=== PATIENT | female | born 1935 | race African-American/Black ===

== ENCOUNTER 2021-04-15 14:50 | Inpatient (IN) | payer BC, OTHER ==
[2021-04-15 16:40] LABS: BASO % 0.5 % (0-2.0); EOS % 0.1 % (0-4.5); HEMATOCRIT 38.8 % (32.4-45.2); HEMOGLOBIN 13.3 GM/dL (10.7-15.3); LYMPH % 18.8 % (8-40); MCH 37.1 pg (25.7-33.7); MCHC 34.2 g/dl (32.0-36.0); MEAN CELL VOLUME 108.5 fl (80-96); MEAN PLT VOLUME 7.5 fl (7.5-11.1); NEUT % 69.6 % (42.8-82.8); PLATELET COUNT 241 10^3/uL (134-434); RBC 3.58 M/mm3 (3.60-5.2); RDW 13.5 % (11.6-15.6); WHITE BLOOD COUNT 5.5 K/mm3 (4.0-10.0)
[2021-04-15 16:48] LABS: INR 1.22 (0.83-1.09); PROTHROMBIN TIME (PATIENT) 13.7 SEC (9.7-13.0)
[2021-04-15 16:51] LABS: ACTIVATED PTT 24.2 SECONDS (25.2-36.5)
[2021-04-15 16:51] LABS: VENOUS BASE EXCESS -2.2 mmol/L (-2-2); VENOUS O2 SATURATION 92.3 % (70-80); VENOUS PCO2 35.6 mmHg (38-52); VENOUS PH 7.405 (7.310-7.410)
[2021-04-15 17:10] LABS: CHLORIDE 107 mmol/L (98-107); SODIUM 138 mmol/L (136-145)
[2021-04-15 17:15] LABS: ALBUMIN 3.8 g/dl (3.4-5.0); ANION GAP 8 MMOL/L (8-16); BLOOD UREA NITROGEN 28.9 mg/dL (7-18); CALCIUM 9.7 mg/dL (8.5-10.1); CO2 23 mmol/L (21-32); GLUCOSE,RANDOM 148 mg/dL (74-106); MAGNESIUM 1.9 mg/dL (1.8-2.4)
[2021-04-15 17:18] LABS: SGOT/AST 14 U/L (15-37); SGPT/ALT 25 U/L (13-61)
[2021-04-15 17:19] LABS: OVALOCYTE 1+; PLATELET ESTIMATE NORMAL
[2021-04-15 17:20] LABS: ANISOCYTOSIS 1+; BILIRUBIN,TOTAL 1.2 mg/dL (0.2-1); MACROCYTOSIS 1+; TOT PROT 8.6 g/dl (6.4-8.2)
[2021-04-15 17:21] LABS: ALK PHOS 92 U/L (45-117)
[2021-04-15] MEDS ORDERED: LACTATED RINGERS SOLUTION 1000 ML INFUS.BAG IV ONE ×2 (17:29→19:41)
[2021-04-16 08:18] LABS: BASO % 0.4 % (0-2.0); EOS % 0.4 % (0-4.5); HEMATOCRIT 35.3 % (32.4-45.2); HEMOGLOBIN 12.2 GM/dL (10.7-15.3); LYMPH % 24.5 % (8-40); MCH 37.5 pg (25.7-33.7); MCHC 34.5 g/dl (32.0-36.0); MEAN CELL VOLUME 108.6 fl (80-96); MEAN PLT VOLUME 7.6 fl (7.5-11.1); MONO % 12.4 % (3.8-10.2); NEUT % 62.3 % (42.8-82.8); PLATELET COUNT 234 10^3/uL (134-434); RBC 3.25 M/mm3 (3.60-5.2); RDW 13.1 % (11.6-15.6)
[2021-04-16 08:46] LABS: ALBUMIN 3.3 g/dl (3.4-5.0); BLOOD UREA NITROGEN 20.6 mg/dL (7-18); CALCIUM 9.3 mg/dL (8.5-10.1); MAGNESIUM 1.9 mg/dL (1.8-2.4)
[2021-04-16 08:49] LABS: CREATININE 0.9 mg/dL (0.55-1.3); PHOSPHOROUS 2.3 mg/dL (2.5-4.9)
[2021-04-16 08:50] LABS: BILIRUBIN,TOTAL 1.4 mg/dL (0.2-1); TOT PROT 7.4 g/dl (6.4-8.2)
[2021-04-16] MEDS ORDERED: ESCITALOPRAM OXALATE 10 MG TABLET PO SCH (10:00)
[2021-04-16] MEDS ORDERED: LISINOPRIL 20 MG TABLET PO SCH (10:00)
[2021-04-16] MEDS ORDERED: PNEUMOC 13-VAL CONJ-DIP CRM/PF 0.5 ML DISP.SYRIN IM ONE (11:00)
[2021-04-16] MEDS ORDERED: FLU VACC QS2021-22(6MOS UP)/PF 60 MCG/0.5 ML SYRINGE IM ONE (11:00)
[2021-04-16] MEDS: LISINOPRIL 20 MG TABLET PO SCH (13:43)
[2021-04-16] MEDS: ASPIRIN 81 MG CHEWABLE TABLETS PO SCH (13:43)
[2021-04-16] MEDS: ENOXAPARIN NA (PORCINE) 40 MG/0.4 ML DISP.SYRIN SQ SCH (13:43)
[2021-04-16] MEDS: INSULIN SLIDING SCALE (NOVOLOG) 1 VIAL SQ SCH ×3 (13:46→21:10)
[2021-04-16 14:36] LABS: URINE APPEARANCE CLEAR; URINE BILIRUBIN NEGATIVE (NEGATIVE); URINE COLOR YELLOW; URINE GLUCOSE (UA) NEGATIVE (NEGATIVE); URINE KETONE TRACE (NEGATIVE); URINE LEUK ESTERASE NEGATIVE (NEGATIVE); URINE NITRITE NEGATIVE (NEGATIVE); URINE PROTEIN TRACE (NEGATIVE)
[2021-04-17] MEDS: INSULIN SLIDING SCALE (NOVOLOG) 1 VIAL SQ SCH ×4 (06:12→21:05)
[2021-04-17 08:24] LABS: HEMATOCRIT 31.9 % (32.4-45.2); HEMOGLOBIN 11.2 GM/dL (10.7-15.3); MCH 38.1 pg (25.7-33.7); MCHC 34.9 g/dl (32.0-36.0); MEAN CELL VOLUME 109.1 fl (80-96); MEAN PLT VOLUME 7.6 fl (7.5-11.1); PLATELET COUNT 212 10^3/uL (134-434); RBC 2.93 M/mm3 (3.60-5.2); RDW 13.3 % (11.6-15.6); WHITE BLOOD COUNT 5.3 K/mm3 (4.0-10.0)
[2021-04-17 08:42] LABS: ALBUMIN 2.9 g/dl (3.4-5.0); BLOOD UREA NITROGEN 20.3 mg/dL (7-18); CALCIUM 9.1 mg/dL (8.5-10.1); MAGNESIUM 1.8 mg/dL (1.8-2.4)
[2021-04-17 08:46] LABS: CREATININE 0.9 mg/dL (0.55-1.3); PHOSPHOROUS 2.9 mg/dL (2.5-4.9)
[2021-04-17 08:47] LABS: BILIRUBIN,TOTAL 0.9 mg/dL (0.2-1); TOT PROT 6.7 g/dl (6.4-8.2)
[2021-04-17 10:07] LABS: ANISOCYTOSIS 1+; MACROCYTOSIS 1+; OVALOCYTE 1+; PLATELET ESTIMATE NORMAL
[2021-04-17] MEDS: ESCITALOPRAM OXALATE 10 MG TABLET PO SCH (10:09)
[2021-04-17] MEDS: LISINOPRIL 20 MG TABLET PO SCH (10:09)
[2021-04-17] MEDS: ASPIRIN 81 MG CHEWABLE TABLETS PO SCH (10:09)
[2021-04-17] MEDS: ENOXAPARIN NA (PORCINE) 40 MG/0.4 ML DISP.SYRIN SQ SCH (10:10)
[2021-04-17] MEDS: QUEtiapine FUMARATE 25 MG TABLET PO SCH (21:00)
[2021-04-18] MEDS: INSULIN SLIDING SCALE (NOVOLOG) 1 VIAL SQ SCH ×4 (06:02→21:22)
[2021-04-18 09:37] LABS: BASO % 0.7 % (0-2.0); EOS % 1.1 % (0-4.5); HEMATOCRIT 33.7 % (32.4-45.2); HEMOGLOBIN 11.7 GM/dL (10.7-15.3); LYMPH % 39.6 % (8-40); MCH 37.9 pg (25.7-33.7); MCHC 34.8 g/dl (32.0-36.0); MEAN PLT VOLUME 7.6 fl (7.5-11.1); MONO % 11.4 % (3.8-10.2); NEUT % 47.2 % (42.8-82.8); PLATELET COUNT 203 10^3/uL (134-434); RBC 3.09 M/mm3 (3.60-5.2); RDW 13.3 % (11.6-15.6); WHITE BLOOD COUNT 4.5 K/mm3 (4.0-10.0)
[2021-04-18 09:44] LABS: CALCIUM 8.9 mg/dL (8.5-10.1)
[2021-04-18 09:45] LABS: BLOOD UREA NITROGEN 17.1 mg/dL (7-18)
[2021-04-18 09:47] LABS: MAGNESIUM 1.7 mg/dL (1.8-2.4)
[2021-04-18 09:49] LABS: CREATININE 0.8 mg/dL (0.55-1.3); PHOSPHOROUS 2.9 mg/dL (2.5-4.9)
[2021-04-18 09:50] LABS: BILIRUBIN,TOTAL 0.8 mg/dL (0.2-1); TOT PROT 6.8 g/dl (6.4-8.2)
[2021-04-18] MEDS: ASPIRIN 81 MG CHEWABLE TABLETS PO SCH (10:48)
[2021-04-18] MEDS: ESCITALOPRAM OXALATE 10 MG TABLET PO SCH (10:48)
[2021-04-18] MEDS: LISINOPRIL 20 MG TABLET PO SCH (10:48)
[2021-04-18] MEDS: ENOXAPARIN NA (PORCINE) 40 MG/0.4 ML DISP.SYRIN SQ SCH (10:49)
[2021-04-18 10:52] LABS: ANISOCYTOSIS 1+; MACROCYTOSIS 1+; PLATELET ESTIMATE NORMAL
[2021-04-18] MEDS ORDERED: LISINOPRIL 20 MG TABLET PO ONE ×2 (11:50→20:58)
[2021-04-18] MEDS: QUEtiapine FUMARATE 25 MG TABLET PO SCH (21:22)
[2021-04-18] MEDS ORDERED: MAGNESIUM OXIDE 400 MG TABLET (FP) PO SCH (22:00)
[2021-04-19] MEDS: INSULIN SLIDING SCALE (NOVOLOG) 1 VIAL SQ SCH ×4 (06:01→21:04)
[2021-04-19 09:30] LABS: METHADONE, UR NEGATIVE (NEGATIVE)
[2021-04-19 09:32] LABS: COCAINE, UR NEGATIVE (NEGATIVE); OPIATES, URI NEGATIVE (NEGATIVE); PHENCYCLIDINE,URINE NEGATIVE (NEGATIVE); URINE AMPHETAMINES NEGATIVE (NEGATIVE); URINE BARBITURATES NEGATIVE (NEGATIVE); URINE BENZODIAZEPINES NEGATIVE (NEGATIVE)
[2021-04-19] MEDS: ASPIRIN 81 MG CHEWABLE TABLETS PO SCH (12:00)
[2021-04-19] MEDS: LISINOPRIL 20 MG TABLET PO SCH ×2 (12:01→20:07)
[2021-04-19] MEDS: ESCITALOPRAM OXALATE 10 MG TABLET PO SCH (12:01)
[2021-04-19] MEDS: ENOXAPARIN NA (PORCINE) 40 MG/0.4 ML DISP.SYRIN SQ SCH (12:01)
[2021-04-19 12:15] LABS: RETICULOCYTES 1.18 % (0.5-1.5)
[2021-04-19 12:36] LABS: LDH 179 U/L (84-246)
[2021-04-19] MEDS ORDERED: hydrALAZINE HCL 20 MG/ML VIAL IVPUSH ONE (19:30)
[2021-04-19] MEDS: DEXTROSE 5%-0.45% SALINE 1,000 ML IV SCH (20:27)
[2021-04-19] MEDS: QUEtiapine FUMARATE 25 MG TABLET PO SCH (21:39)
[2021-04-20 00:06] LABS: IGM QN SERUM 5 mg/dL (26-217)
[2021-04-20] MEDS: INSULIN SLIDING SCALE (NOVOLOG) 1 VIAL SQ SCH ×4 (06:23→21:11)
[2021-04-20] MEDS: ASPIRIN 81 MG CHEWABLE TABLETS PO SCH (10:04)
[2021-04-20] MEDS: ENOXAPARIN NA (PORCINE) 40 MG/0.4 ML DISP.SYRIN SQ SCH (10:04)
[2021-04-20] MEDS: LISINOPRIL 20 MG TABLET PO SCH (10:04)
[2021-04-20] MEDS: ESCITALOPRAM OXALATE 10 MG TABLET PO SCH (10:05)
[2021-04-20] MEDS: DEXTROSE 5%-0.45% SALINE 1,000 ML IV SCH ×2 (11:30→20:06)
[2021-04-20 16:07] LABS: IGG QN IMMUNOGLOBULIN 1821 mg/dL (586-1602); IGG SUBCLASS 1 1637 mg/dL (248-810); IGG SUBCLASS 2 47 mg/dL (130-555); IGG SUBCLASS 3 15 mg/dL (15-102)
[2021-04-20] MEDS ORDERED: LORazepam 2 MG/ML SDV VIAL IM ONE (17:30)
[2021-04-20] MEDS ORDERED: LORazepam 2 MG/ML SDV VIAL IVPUSH ONE (17:40)
[2021-04-20] MEDS ORDERED: LORazepam 2 MG/ML SDV VIAL IVPUSH PRN (17:40)
[2021-04-20] MEDS: QUEtiapine FUMARATE 25 MG TABLET PO SCH (21:02)
[2021-04-21] MEDS: INSULIN SLIDING SCALE (NOVOLOG) 1 VIAL SQ SCH ×4 (06:03→22:09)
[2021-04-21] MEDS: DEXTROSE 5%-0.45% SALINE 1,000 ML IV SCH (06:28)
[2021-04-21 09:22] LABS: BASO % 0.3 % (0-2.0); EOS % 0.3 % (0-4.5); HEMATOCRIT 32.7 % (32.4-45.2); HEMOGLOBIN 11.5 GM/dL (10.7-15.3); LYMPH % 18.7 % (8-40); MCH 38.4 pg (25.7-33.7); MEAN CELL VOLUME 109.7 fl (80-96); MEAN PLT VOLUME 7.7 fl (7.5-11.1); MONO % 11.8 % (3.8-10.2); NEUT % 68.9 % (42.8-82.8); PLATELET COUNT 197 10^3/uL (134-434); RBC 2.98 M/mm3 (3.60-5.2); RDW 13.6 % (11.6-15.6); WHITE BLOOD COUNT 7.9 K/mm3 (4.0-10.0)
[2021-04-21 10:05] LABS: ALBUMIN 2.9 g/dl (3.4-5.0); BLOOD UREA NITROGEN 17.8 mg/dL (7-18); CALCIUM 9.3 mg/dL (8.5-10.1)
[2021-04-21 10:06] LABS: MAGNESIUM 1.7 mg/dL (1.8-2.4)
[2021-04-21 10:09] LABS: PHOSPHOROUS 3.1 mg/dL (2.5-4.9)
[2021-04-21 10:10] LABS: TOT PROT 6.3 g/dl (6.4-8.2)
[2021-04-21] MEDS: LISINOPRIL 20 MG TABLET PO SCH (10:23)
[2021-04-21] MEDS: ENOXAPARIN NA (PORCINE) 40 MG/0.4 ML DISP.SYRIN SQ SCH (10:23)
[2021-04-21] MEDS: ASPIRIN 81 MG CHEWABLE TABLETS PO SCH (10:23)
[2021-04-21] MEDS: ESCITALOPRAM OXALATE 10 MG TABLET PO SCH (10:23)
[2021-04-21 12:00] LABS: ANISOCYTOSIS 1+; MACROCYTOSIS 1+; PLATELET ESTIMATE NORMAL
[2021-04-21] MEDS ORDERED: MAGNESIUM SULF 50% (8.12 MEQ/2 ML-1 GM VIAL) IVPB ONE (16:07)
[2021-04-21 17:07] LABS: FREE KAPPA,SERUM 1225.6 mg/L (3.3-19.4)
[2021-04-21] MEDS ORDERED: FAMOTIDINE 20 MG TABLET PO ONE (18:11)
[2021-04-21] MEDS: QUEtiapine FUMARATE 25 MG TABLET PO SCH (20:59)
[2021-04-22] MEDS: INSULIN SLIDING SCALE (NOVOLOG) 1 VIAL SQ SCH ×4 (06:21→21:52)
[2021-04-22] MEDS: DEXTROSE 5%-0.45% SALINE 1,000 ML IV SCH ×2 (06:23→20:38)
[2021-04-22 09:38] LABS: BASO % 0.3 % (0-2.0); HEMATOCRIT 30.7 % (32.4-45.2); HEMOGLOBIN 10.6 GM/dL (10.7-15.3); LYMPH % 20.3 % (8-40); MCH 37.7 pg (25.7-33.7); MCHC 34.4 g/dl (32.0-36.0); MEAN CELL VOLUME 109.6 fl (80-96); MEAN PLT VOLUME 8.1 fl (7.5-11.1); MONO % 10.2 % (3.8-10.2); NEUT % 69.2 % (42.8-82.8); PLATELET COUNT 224 10^3/uL (134-434); RDW 13.4 % (11.6-15.6)
[2021-04-22 09:52] LABS: ALBUMIN 2.8 g/dl (3.4-5.0); BLOOD UREA NITROGEN 39.8 mg/dL (7-18); MAGNESIUM 2.2 mg/dL (1.8-2.4)
[2021-04-22 09:55] LABS: PHOSPHOROUS 2.4 mg/dL (2.5-4.9)
[2021-04-22 09:56] LABS: TOT PROT 6.4 g/dl (6.4-8.2)
[2021-04-22] MEDS: ENOXAPARIN NA (PORCINE) 40 MG/0.4 ML DISP.SYRIN SQ SCH (10:36)
[2021-04-22] MEDS: ASPIRIN 81 MG CHEWABLE TABLETS PO SCH (10:36)
[2021-04-22] MEDS: ESCITALOPRAM OXALATE 10 MG TABLET PO SCH (10:36)
[2021-04-22] MEDS: LISINOPRIL 20 MG TABLET PO SCH (10:36)
[2021-04-22] MEDS: QUEtiapine FUMARATE 25 MG TABLET PO SCH (21:43)
[2021-04-23] MEDS: INSULIN SLIDING SCALE (NOVOLOG) 1 VIAL SQ SCH ×4 (06:18→21:28)
[2021-04-23] MEDS ORDERED: LORazepam 2 MG/ML SDV VIAL IVPUSH ONE (10:12)
[2021-04-23] MEDS: ASPIRIN 81 MG CHEWABLE TABLETS PO SCH (10:21)
[2021-04-23] MEDS: ESCITALOPRAM OXALATE 10 MG TABLET PO SCH (10:21)
[2021-04-23] MEDS: LISINOPRIL 20 MG TABLET PO SCH (10:21)
[2021-04-23 12:00] LABS: BASO % 0.4 % (0-2.0); EOS % 0.4 % (0-4.5); HEMATOCRIT 27.6 % (32.4-45.2); HEMOGLOBIN 9.4 GM/dL (10.7-15.3); LYMPH % 21.4 % (8-40); MCH 37.9 pg (25.7-33.7); MCHC 34.3 g/dl (32.0-36.0); MEAN CELL VOLUME 110.7 fl (80-96); MEAN PLT VOLUME 8.1 fl (7.5-11.1); MONO % 9.7 % (3.8-10.2); NEUT % 68.1 % (42.8-82.8); PLATELET COUNT 203 10^3/uL (134-434); RBC 2.49 M/mm3 (3.60-5.2); WHITE BLOOD COUNT 8.3 K/mm3 (4.0-10.0)
[2021-04-23 12:34] LABS: ALBUMIN 2.5 g/dl (3.4-5.0); BLOOD UREA NITROGEN 31.4 mg/dL (7-18)
[2021-04-23 12:35] LABS: MAGNESIUM 2.2 mg/dL (1.8-2.4)
[2021-04-23 12:38] LABS: CREATININE 0.9 mg/dL (0.55-1.3); PHOSPHOROUS 2.4 mg/dL (2.5-4.9)
[2021-04-23 12:39] LABS: BILIRUBIN,TOTAL 0.8 mg/dL (0.2-1); TOT PROT 6.1 g/dl (6.4-8.2)
[2021-04-23] MEDS: QUEtiapine FUMARATE 25 MG TABLET PO SCH (21:28)
[2021-04-23] MEDS: DEXTROSE 5%-0.45% SALINE 1,000 ML IV SCH (22:04)
[2021-04-24] MEDS: INSULIN SLIDING SCALE (NOVOLOG) 1 VIAL SQ SCH ×4 (06:33→21:26)
[2021-04-24 08:32] LABS: HEMATOCRIT 26.1 % (32.4-45.2); MCH 37.7 pg (25.7-33.7); MCHC 34.3 g/dl (32.0-36.0); MEAN CELL VOLUME 110.1 fl (80-96); MEAN PLT VOLUME 7.7 fl (7.5-11.1); PLATELET COUNT 191 10^3/uL (134-434); RBC 2.37 M/mm3 (3.60-5.2); RDW 13.9 % (11.6-15.6)
[2021-04-24 08:49] LABS: CALCIUM 8.8 mg/dL (8.5-10.1)
[2021-04-24 08:50] LABS: ALBUMIN 2.5 g/dl (3.4-5.0); BLOOD UREA NITROGEN 21.4 mg/dL (7-18); MAGNESIUM 2.2 mg/dL (1.8-2.4)
[2021-04-24 08:53] LABS: CREATININE 0.9 mg/dL (0.55-1.3); PHOSPHOROUS 2.4 mg/dL (2.5-4.9)
[2021-04-24 08:54] LABS: BILIRUBIN,TOTAL 0.7 mg/dL (0.2-1); TOT PROT 5.8 g/dl (6.4-8.2)
[2021-04-24] MEDS: LISINOPRIL 20 MG TABLET PO SCH (09:53)
[2021-04-24] MEDS: ESCITALOPRAM OXALATE 10 MG TABLET PO SCH (09:53)
[2021-04-24] MEDS: ASPIRIN 81 MG CHEWABLE TABLETS PO SCH (09:53)
[2021-04-24 11:08] LABS: ANISOCYTOSIS 1+; MACROCYTOSIS 1+; OVALOCYTE 2+; PLATELET ESTIMATE NORMAL; TEAR DROP CELLS 1+
[2021-04-24] MEDS ORDERED: QUEtiapine FUMARATE 25 MG TABLET ONE (20:49)
[2021-04-24] MEDS: QUEtiapine FUMARATE 25 MG TABLET PO SCH (21:26)
[2021-04-25] MEDS: DEXTROSE 5%-0.45% SALINE 1,000 ML IV SCH ×2 (01:25→23:26)
[2021-04-25] MEDS: INSULIN SLIDING SCALE (NOVOLOG) 1 VIAL SQ SCH ×4 (06:24→23:24)
[2021-04-25 09:41] LABS: BASO % 0.4 % (0-2.0); EOS % 0.8 % (0-4.5); HEMATOCRIT 28.9 % (32.4-45.2); HEMOGLOBIN 10.2 GM/dL (10.7-15.3); LYMPH % 21.6 % (8-40); MCH 38.8 pg (25.7-33.7); MCHC 35.3 g/dl (32.0-36.0); MEAN PLT VOLUME 8.1 fl (7.5-11.1); MONO % 11.3 % (3.8-10.2); NEUT % 65.9 % (42.8-82.8); PLATELET COUNT 239 10^3/uL (134-434); RBC 2.63 M/mm3 (3.60-5.2); RDW 13.6 % (11.6-15.6); WHITE BLOOD COUNT 7.2 K/mm3 (4.0-10.0)
[2021-04-25 11:25] LABS: BLOOD UREA NITROGEN 11.5 mg/dL (7-18)
[2021-04-25] MEDS: ESCITALOPRAM OXALATE 10 MG TABLET PO SCH (11:26)
[2021-04-25] MEDS: LISINOPRIL 20 MG TABLET PO SCH (11:26)
[2021-04-25 11:30] LABS: CALCIUM 8.8 mg/dL (8.5-10.1)
[2021-04-25 11:32] LABS: BILIRUBIN,TOTAL 1.1 mg/dL (0.2-1); TOT PROT 6.9 g/dl (6.4-8.2)
[2021-04-25 11:33] LABS: CREATININE 0.9 mg/dL (0.55-1.3); PHOSPHOROUS 2.2 mg/dL (2.5-4.9)
[2021-04-25 11:44] LABS: ALBUMIN 3.1 g/dl (3.4-5.0)
[2021-04-25 14:51] LABS: ANISOCYTOSIS 1+; MACROCYTOSIS 0; PLATELET ESTIMATE NORMAL
[2021-04-25] MEDS: QUEtiapine FUMARATE 25 MG TABLET PO SCH (22:56)
[2021-04-26] MEDS: INSULIN SLIDING SCALE (NOVOLOG) 1 VIAL SQ SCH ×4 (06:21→21:58)
[2021-04-26 09:36] LABS: BASO % 0.4 % (0-2.0); EOS % 0.9 % (0-4.5); HEMATOCRIT 29.3 % (32.4-45.2); HEMOGLOBIN 10.2 GM/dL (10.7-15.3); LYMPH % 19.5 % (8-40); MCH 38.5 pg (25.7-33.7); MCHC 34.9 g/dl (32.0-36.0); MEAN CELL VOLUME 110.2 fl (80-96); MONO % 10.7 % (3.8-10.2); NEUT % 68.5 % (42.8-82.8); PLATELET COUNT 241 10^3/uL (134-434); RBC 2.66 M/mm3 (3.60-5.2); RDW 14.2 % (11.6-15.6); WHITE BLOOD COUNT 8.5 K/mm3 (4.0-10.0)
[2021-04-26] MEDS ORDERED: POTASSIUM CHLORIDE ORAL LIQUID 20 MEQ/15 ML PO ONE (09:36)
[2021-04-26 09:41] LABS: BLOOD UREA NITROGEN 8.5 mg/dL (7-18); CALCIUM 8.9 mg/dL (8.5-10.1)
[2021-04-26 09:45] LABS: CREATININE 0.8 mg/dL (0.55-1.3)
[2021-04-26 09:46] LABS: BILIRUBIN,TOTAL 0.8 mg/dL (0.2-1); TOT PROT 6.7 g/dl (6.4-8.2)
[2021-04-26] MEDS: ESCITALOPRAM OXALATE 10 MG TABLET PO SCH (10:54)
[2021-04-26] MEDS: LISINOPRIL 20 MG TABLET PO SCH (10:54)
[2021-04-26 13:45] VITALS: BMI 26.9
[2021-04-26] MEDS: DEXTROSE 5%-0.45% SALINE 1,000 ML IV SCH ×2 (14:38→19:42)
[2021-04-26] MEDS: QUEtiapine FUMARATE 25 MG TABLET PO SCH (21:57)
[2021-04-27] MEDS: INSULIN SLIDING SCALE (NOVOLOG) 1 VIAL SQ SCH ×4 (06:33→21:21)
[2021-04-27] MEDS ORDERED: MULTIVITAMINS (DAILY MVI) TABLET (FP) PO SCH (10:00)
[2021-04-27] MEDS: MULTIVITAMINS (DAILY MVI) TABLET (FP) PO SCH ×2 (10:32→10:35)
[2021-04-27] MEDS: ESCITALOPRAM OXALATE 10 MG TABLET PO SCH (10:32)
[2021-04-27] MEDS: LISINOPRIL 20 MG TABLET PO SCH (10:32)
[2021-04-27 12:25] LABS: BASO % 0.7 % (0-2.0); HEMATOCRIT 25.6 % (32.4-45.2); HEMOGLOBIN 8.8 GM/dL (10.7-15.3); MCH 38.2 pg (25.7-33.7); MCHC 34.4 g/dl (32.0-36.0); MEAN CELL VOLUME 111.3 fl (80-96); MEAN PLT VOLUME 8.1 fl (7.5-11.1); MONO % 10.8 % (3.8-10.2); NEUT % 68.5 % (42.8-82.8); PLATELET COUNT 218 10^3/uL (134-434); RDW 14.8 % (11.6-15.6); WHITE BLOOD COUNT 5.8 K/mm3 (4.0-10.0)
[2021-04-27 12:42] LABS: ALBUMIN 2.5 g/dl (3.4-5.0)
[2021-04-27 12:44] LABS: BLOOD UREA NITROGEN 11.9 mg/dL (7-18); CALCIUM 9.1 mg/dL (8.5-10.1)
[2021-04-27 12:48] LABS: CREATININE 0.8 mg/dL (0.55-1.3)
[2021-04-27 12:49] LABS: BILIRUBIN,TOTAL 0.8 mg/dL (0.2-1); TOT PROT 5.7 g/dl (6.4-8.2)
[2021-04-27] MEDS ORDERED: OLANZapine 2.5 MG TABLET PO SCH (22:00)
[2021-04-28] MEDS: INSULIN SLIDING SCALE (NOVOLOG) 1 VIAL SQ SCH ×3 (06:00→16:40)
[2021-04-28 09:27] LABS: BASO % 0.9 % (0-2.0); HEMATOCRIT 26.5 % (32.4-45.2); HEMOGLOBIN 9.2 GM/dL (10.7-15.3); LYMPH % 21.4 % (8-40); MCHC 34.7 g/dl (32.0-36.0); MEAN CELL VOLUME 109.5 fl (80-96); MEAN PLT VOLUME 7.5 fl (7.5-11.1); MONO % 11.3 % (3.8-10.2); NEUT % 64.4 % (42.8-82.8); PLATELET COUNT 222 10^3/uL (134-434); RBC 2.42 M/mm3 (3.60-5.2); RDW 14.5 % (11.6-15.6); WHITE BLOOD COUNT 5.7 K/mm3 (4.0-10.0)
[2021-04-28 09:50] LABS: ALBUMIN 2.6 g/dl (3.4-5.0); BLOOD UREA NITROGEN 12.6 mg/dL (7-18); CALCIUM 8.5 mg/dL (8.5-10.1); MAGNESIUM 1.9 mg/dL (1.8-2.4)
[2021-04-28 09:53] LABS: CREATININE 0.9 mg/dL (0.55-1.3); PHOSPHOROUS 2.8 mg/dL (2.5-4.9)
[2021-04-28 09:54] LABS: TOT PROT 6.2 g/dl (6.4-8.2)
[2021-04-28] MEDS: MULTIVITAMINS (DAILY MVI) TABLET (FP) PO SCH (11:40)
[2021-04-28] MEDS: LISINOPRIL 20 MG TABLET PO SCH (11:40)
[2021-04-28] MEDS: ESCITALOPRAM OXALATE 10 MG TABLET PO SCH (11:41)
[2021-04-28] MEDS ORDERED: LORazepam 2 MG/ML SDV VIAL IVPUSH PRN (15:42)
[2021-04-28 15:52] VITALS: BP 159/79; PULSE 80; TEMP 98.1
[2021-04-28] MEDS ORDERED: LORazepam 2 MG/ML SDV VIAL IM ONE (16:20)
[2021-04-28] MEDS ORDERED: LORazepam 2 MG TABLET PO ONE (16:20)
[2021-04-28] MEDS ORDERED: LORazepam 1 MG TABLET PO ONE (16:30)
== END 2021-04-28 17:08 | DRG 885 ==
LOC: JER 14:50 → JERBED 20:57 → OBSVTOIN 04-16 00:02 → J5S 04-16 00:28
PROVIDERS: ADMIT Internal Medicine
DX: F33.3 Major depressive disorder, recurrent, severe with psychotic symptoms (principal); C90.00 Multiple myeloma not having achieved remission; I82.411 Acute embolism and thrombosis of right femoral vein; R64 Cachexia; R41.82 Altered mental status, unspecified; E11.9 Type 2 diabetes mellitus without complications; I10 Essential (primary) hypertension; R45.1 Restlessness and agitation; D47.2 Monoclonal gammopathy; E86.0 Dehydration; E66.9 Obesity, unspecified; Z68.26 Body mass index [BMI] 26.0-26.9, adult; E78.5 Hyperlipidemia, unspecified; I87.2 Venous insufficiency (chronic) (peripheral); R62.7 Adult failure to thrive
CPT/HCPCS: 36415; 70450-TC; 70551-TC; 71045-TC-FY; 72125-TC; 80053; 80307; 81003; 82105; 82140; 82550; 82607; 82746; 82784; 82787; 82803; 82962; 82977; 83010; 83615; 83735; 83883; 84100; 84155; 84165; 84443; 84484; 85025; 85045; 85379; 85384; 85610; 85651; 85730; 86140; 90670; 90686; 93005; 93010; 93306-TC; 93970-TC; 97116-GP; 97161-GP; 99285-25; C9803; G0008; G0009; G0378; U0003; U0005